=== PATIENT | female | born 1980 | race Caucasian/White ===

== ENCOUNTER 2017-06-08 11:17 | Emergency (ER) | payer SELFPAY ==
[2017-06-08 11:46] VITALS: BP 117/78
[2017-06-08 12:39] LABS: Bilirubin,Urine NEG (Negative); Blood,Urine NEG (Negative); Ketones,Urine NEG (Negative); Leukocyte Esterase,Urine NEG (Negative); Mucus,Urine FEW /HPF; Nitrite,Urine NEG (Negative); Protein,Urine <15 mg/dL mg/dL (Negative); Urobilinogen,Urine < 2.0 mg/dL (<2.0)
[2017-06-08] MEDS ORDERED: TORADOL IM ONE (14:40)
[2017-06-08] MEDS ORDERED: DECADRON IM ONE (14:40)
--- NOTE | 2017-06-08 15:13 | Emergency Department Report ---
ED Back Pain/Injury HPI - General Chief Complaint: Back Pain/Injury Stated Complaint: RT SIDE BACK AND LEG PAIN Time Seen by Provider: 06/08/17 14:23 Source: patient Limitations: No Limitations - History of Present Illness Initial Comments: Patient comes into the ER today with complaints of right sided lower back pain has been radiating into her right leg for the past 4 days. Patient denies any injury. 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 Patient notes that she has had this a few times in the past and that it has resolved on its own. Patient further notes that many years ago she was told that she had a disc problem in her back but is unsure if it ever resolved. Patient denies any dysuria, abdominal pain, diarrhea, vomiting, fever. Patient does state that the pain is worse with certain movements as well as standing. MD Complaint: back pain -: days(s) (4) - Related Data Previous Rx's Medication Instructions Recorded Last Taken Type Ibuprofen [Motrin] 600 mg PO Q8H PRN #40 tablet 02/14/15 Unknown Rx oxyCODONE /ACETAMINOPHEN [Percocet 1 tab PO Q6HR PRN #20 tablet 02/14/15 Unknown Rx 5/325] Acetaminophen/Codeine [Tylenol 1 tab PO Q6H PRN #20 tab 06/08/17 Unknown Rx /Codeine # 3 tab] Cyclobenzaprine HCl [Flexeril 5 MG 5 mg PO TID #15 tab 06/08/17 Unknown Rx TAB] predniSONE [Deltasone] 60 mg PO QDAY #15 tab 06/08/17 Unknown Rx Allergies Allergy/AdvReac Type Severity Reaction Status Date / Time No Known Allergies Allergy Verified 06/08/17 11:41 ED Review of Systems ROS: Stated complaint: RT SIDE BACK AND LEG PAIN Other details as noted in HPI Constitutional: denies: chills, fever Eyes: denies: eye pain, eye discharge, vision change ENT: denies: ear pain, throat pain Respiratory: denies: cough, shortness of breath, wheezing Cardiovascular: denies: chest pain, palpitations Endocrine: no symptoms reported Gastrointestinal: denies: abdominal pain, nausea, diarrhea Genitourinary: denies: urgency, dysuria, frequency, hematuria, discharge Musculoskeletal: back pain. denies: joint swelling, arthralgia Skin: denies: rash, lesions Neurological: denies: headache, weakness, paresthesias Psychiatric: denies: anxiety, depression Hematological/Lymphatic: denies: easy bleeding, easy bruising ED Past Medical Hx - Past Medical History Previous Medical History?: No Additional medical history: OVARIAN CYST - Surgical History Past Surgical History?: Yes Additional Surgical History: Left Oophorectomy - Social History Smoking Status: Current Some Day Smoker Substance Use Type: Alcohol - Medications Home Medications: Home Medications Medication Instructions Recorded Confirmed Last Taken Type Ibuprofen [Motrin] 600 mg PO Q8H PRN #40 tablet 02/14/15 Unknown Rx oxyCODONE /ACETAMINOPHEN [Percocet 1 tab PO Q6HR PRN #20 tablet 02/14/15 Unknown Rx 5/325] Acetaminophen/Codeine [Tylenol 1 tab PO Q6H PRN #20 tab 06/08/17 Unknown Rx /Codeine # 3 tab] Cyclobenzaprine HCl [Flexeril 5 MG 5 mg PO TID #15 tab 06/08/17 Unknown Rx TAB] predniSONE [Deltasone] 60 mg PO QDAY #15 tab 06/08/17 Unknown Rx ED Physical Exam - General Limitations: No Limitations General appearance: alert, in no apparent distress - Head Head exam: Present: atraumatic, normocephalic - Eye Eye exam: Present: normal appearance - ENT ENT exam: Present: mucous membranes moist - Neck Neck exam: Present: normal inspection - Respiratory Respiratory exam: Present: normal lung sounds bilaterally. Absent: respiratory distress - Cardiovascular Cardiovascular Exam: Present: regular rate, normal rhythm. Absent: systolic murmur, diastolic murmur, rubs, gallop - GI/Abdominal GI/Abdominal exam: Present: soft, normal bowel sounds. Absent: distended, tenderness, guarding, rebound - Extremities Exam Extremities exam: Present: normal inspection, full ROM, normal capillary refill. Absent: tenderness, pedal edema, joint swelling, calf tenderness - Back Exam Back exam: Present: normal inspection, tenderness (right lumbar), paraspinal tenderness, other (palpation of right iliac crest reproduces pain in right lower leg.). Absent: full ROM (limited full flexion of the lumbar spine. Pain reproduced with right and left lateral bending.), CVA tenderness (R), CVA tenderness (L), vertebral tenderness - Neurological Exam Neurological exam: Present: alert, oriented X3, CN II-XII intact, normal gait, reflexes normal. Absent: motor sensory deficit - Psychiatric Psychiatric exam: Present: normal affect, normal mood - Skin Skin exam: Present: warm, dry, intact, normal color. Absent: rash ED Course Vital Signs 06/08/17 11:42 Temperature 98.5 F Pulse Rate 80 Respiratory 18 Rate Blood Pressure 117/78 O2 Sat by Pulse 100 Oximetry ED Medical Decision Making - Lab Data Lab Results 06/08/17 Range/Units Unknown Urine Color Yellow (Yellow) Urine Turbidity Clear (Clear) Urine pH 5.0 (5.0-7.0) Ur Specific [place] 1.024 (1.003-1.030) Urine Protein <15 mg/dl (Negative) mg/dL Urine Glucose (UA) Neg (Negative) mg/dL Urine Ketones Neg (Negative) mg/dL Urine Blood Neg (Negative) Urine Nitrite Neg (Negative) Ur Reducing Substances Not Reportable Urine Bilirubin Neg (Negative) Urine Ictotest Not Reportable Urine Urobilinogen < 2.0 (<2.0) mg/dL Ur Leukocyte Esterase Neg (Negative) Urine WBC (Auto) 1.0 (0.0-6.0) /HPF Urine RBC (Auto) 4.0 (0.0-6.0) /HPF U Epithel Cells (Auto) 2.0 (0-13.0) /HPF Hyaline Casts 1 /LPF Urine Mucus Few /HPF Urine HCG, Qual Negative (Negative) - Medical Decision Making Patient is nontoxic and hemodynamically stable. Physical exam and history of patient's complaints is more consistent with musculoskeletal etiology. Patient may be suffering from possible discogenic etiology versus iliotibial band inflammation. I will start patient on some medications for symptomatic relief and refer patient to a back specialist for further evaluation. Patient does not have vertebral body tenderness and there is no injury. I see no purpose to obtaining x-ray imaging at this time. Patient has a benign abdominal exam. Patient is in agreement with treatment plan the patient is stable for discharge. Critical care attestation.: If time is entered above; I have spent that time in minutes in the direct care of this critically ill patient, excluding procedure time. ED Disposition Clinical Impression: Acute right-sided low back pain, Lumbar radiculopathy, acute Disposition: DC-01 TO HOME OR SELFCARE Is pt being admited?: No Does the pt Need Aspirin: No Condition: Good Instructions: Sciatica (ED), Lumbar Radiculopathy (ED), Lumbar Disc Herniation (ED) Prescriptions: Acetaminophen/Codeine [Tylenol /Codeine # 3 tab] 1 tab PO Q6H PRN #20 tab PRN Reason: Pain Cyclobenzaprine HCl [Flexeril 5 MG TAB] 5 mg PO TID #15 tab predniSONE [Deltasone] 60 mg PO QDAY #15 tab Referrals: PRIMARY CAREMD [Primary Care Provider] - 3-5 Days HAILEY DOCKERY MD [Staff Physician] - 3-5 Days Time of Disposition: 15:18
== END 2017-06-08 15:26 | disposition home or self-care (01) ==
LOC: ED 11:17
DX: M54.16 Radiculopathy, lumbar region (principal); Z72.0 Tobacco use
CPT/HCPCS: 81001; 81025; 96372; 99283; J1100; J1885

== ENCOUNTER 2021-09-25 14:58 | Emergency (ER) | payer MEDICAID ==
[2021-09-25 16:09] VITALS: BP 119/69
--- NOTE | 2021-09-25 16:10 | Emergency Department Report ---
ED Lower Extremity HPI - General Chief Complaint: Extremity Injury, Lower Stated Complaint: LT FOOT PAIN Time Seen by Provider: 09/25/21 15:53 Source: patient Mode of arrival: Ambulatory Limitations: No Limitations - History of Present Illness Initial Comments: Patient is a 41-year-old female presents emergency room complaints of left foot pain that began a week and a half ago. Patient states that she hit her foot against the edge of the door frame. States since then she has had pain in her foot. She is ambulatory. She denies any numbness or weakness. She denies any previous fracture or any surgeries to this lower extremity. No past medical history. No allergies to medications. She has not had a menstrual cycle in 1 year. - Related Data Previous Rx's Medication Instructions Recorded Last Taken Type Ibuprofen 800 mg PO Q6HR #30 tablet 05/14/18 05/23/18 Rx levoFLOXacin [Levaquin TAB] 500 mg PO QDAY 7 Days #14 tablet 05/14/18 05/24/18 Rx Naproxen 375 mg PO BID PRN #20 tablet 09/25/21 Unknown Rx Allergies Allergy/AdvReac Type Severity Reaction Status Date / Time No Known Allergies Allergy Verified 06/08/17 11:41 ED Review of Systems ROS: Stated complaint: LT FOOT PAIN Other details as noted in HPI Comment: All other systems reviewed and negative ED Past Medical Hx - Past Medical History Hx HIV: No Additional medical history: OVARIAN CYST - Surgical History Additional Surgical History: Left Oophorectomy - Social History Smoking Status: Never Smoker - Medications Home Medications: Home Medications Medication Instructions Recorded Confirmed Last Taken Type Ibuprofen 800 mg PO Q6HR #30 tablet 05/14/18 05/24/18 05/23/18 Rx levoFLOXacin [Levaquin TAB] 500 mg PO QDAY 7 Days #14 tablet 05/14/18 05/24/18 05/24/18 Rx Naproxen 375 mg PO BID PRN #20 tablet 09/25/21 Unknown Rx ED Physical Exam - General Limitations: No Limitations General appearance: alert, in no apparent distress - Head Head exam: Present: atraumatic, normocephalic - Eye Eye exam: Present: normal appearance - ENT ENT exam: Present: mucous membranes moist - Extremities Exam Extremities exam: Present: other (mild ttp to the left lateral foot, FROM of the LLE, no deformity, neurovascularly intact) - Neurological Exam Neurological exam: Present: alert, oriented X3 - Psychiatric Psychiatric exam: Present: normal affect, normal mood - Skin Skin exam: Present: warm, dry, intact ED Course Vital Signs 09/25/21 15:20 Temperature 98.5 F Pulse Rate 89 Respiratory 18 Rate Blood Pressure 119/69 O2 Sat by Pulse 98 Oximetry ED Lower Extremity MDM - Radiology Data Radiology results: report reviewed Ordering Physician: SANDY ATKINS Date of Service: 09/25/21 Procedure(s): XR foot 3+V LT Accession Number(s): [id number] cc: SANDY ATKINS Fluoro Time In Minutes: Left foot-3 views INDICATION: left lateral foot pain after hitting against door. COMPARISON: None. IMPRESSION: Comminuted fracture at the base of the little toe proximal phalanx with mild surrounding soft tissue swelling and no significant angulation. No significant DJD. Signer Name: Alexander Tenorio MD Signed: 09/25/2021 4:24 PM Workstation Name: [id number] Transcribed By: MARIANO Dictated By: Alexander Tenorio MD Electronically Authenticated By: Alexander Tenorio MD Signed Date/Time: 09/25/21 1624 DD/ 162 TD/TT: - Medical Decision Making Patient is a 41-year-old female presents emergency room complaints of left foot pain that began a week and a half ago. Patient states that she hit her foot against the edge of the door frame. States since then she has had pain in her foot. She is ambulatory. She denies any numbness or weakness. She denies any previous fracture or any surgeries to this lower extremity. No past medical history. No allergies to medications. She has not had a menstrual cycle in 1 year. Vitals are normal. On exam:mild ttp to the left lateral foot, FROM of the LLE, no deformity, neurovascularly intact. X-ray left foot IMPRESSION: Comminuted fracture at the base of the little toe proximal phalanx with mild surrounding soft tissue swelling and no significant angulation. No significant DJD. Carlton taping performed by tech and postop shoe placed and given crutches and remain neurovascularly intact. Discussed findings with patient and the importance of orthopedic follow-up. Advised patient Please take medication as prescribed. May ice for 15 minutes at a time, rest, elevate the leg. Follow-up with orthopedic doctor. Return to emergency room for new or worsening symptoms. Critical care attestation.: If time is entered above; I have spent that time in minutes in the direct care of this critically ill patient, excluding procedure time. ED Disposition Clinical Impression: Toe fracture Qualifiers: Encounter type: initial encounter Toe: lesser toe Fracture type: closed Phalanx: proximal Fracture alignment: nondisplaced Laterality: left Qualified Code(s): S92.515A - Nondisplaced fracture of proximal phalanx of left lesser toe(s), initial encounter for closed fracture Disposition: 01 HOME / SELF CARE / HOMELESS Is pt being admited?: No Does the pt Need Aspirin: No Condition: Stable Instructions: Toe Fracture, [id number] Additional Instructions: Please take medication as prescribed. May ice for 15 minutes at a time, rest, elevate the leg. Follow-up with orthopedic doctor. Return to emergency room for new or worsening symptoms. Prescriptions: Naproxen 375 mg PO BID PRN #20 tablet PRN Reason: pain Referrals: [facility] [Provider Group] - 3-5 Days LEON CHOI MD [Staff Physician] - 3-5 Days Time of Disposition: 16:31 Print Language: GAMBIAN
--- NOTE | 2021-09-25 16:28 | XRay Report ---
Left foot-3 views INDICATION: left lateral foot pain after hitting against door. COMPARISON: None. IMPRESSION: Comminuted fracture at the base of the little toe proximal phalanx with mild surrounding soft tissue swelling and no significant angulation. No significant DJD. Signer Name: Alexander Tenorio MD Signed: 09/25/2021 4:24 PM Workstation Name: [id number]
== END 2021-09-25 17:21 | disposition home or self-care (01) ==
LOC: ED 14:58
DX: S92.515A Nondisplaced fracture of proximal phalanx of left lesser toe(s), initial encounter for closed fracture (principal); W22.8XXA Striking against or struck by other objects, initial encounter; Y93.89 Activity, other specified; Y92.89 Other specified places as the place of occurrence of the external cause; Y99.8 Other external cause status
CPT/HCPCS: 99283

== ENCOUNTER 2022-08-08 14:53 | Emergency (ER) | payer MEDICAID | END 2022-08-08 14:55 | disposition left against medical advice (07) | LOC: ED 14:53 | DX: R10.31 Right lower quadrant pain (principal); Z53.21 Procedure and treatment not carried out due to patient leaving prior to being seen by health care provider ==